=== PATIENT | female | born 1960 | race African-American/Black ===

== ENCOUNTER 2017-04-03 14:59 | Emergency (ER) | payer MEDICAID ==
[~2017-04-03] VITALS: Ht 160 cm; Wt 62.0 kg
[~2017-04-03 14:59] MED LIST: CARI350T PO; DOCU50CA11; FOLI-43 PO; GABA800T97 PO; HYDR-522 PO; HYDR200T35 PO; METH4TAB17 PO; METO10TA3 PO; P20 PO; PREN1TAB23 PO; PROT40 PO; RISP3; [UNRECOGNIZED DRUG - CODE]
[2017-04-03] MEDS ORDERED: HYDROCORTISONE SOD SUCCINATE 100 MG/2 ML VIAL IV ONE (18:00)
[2017-04-03] MEDS ORDERED: MORPHINE SULFATE 4 MG/ML CPJ (NOT FOR IM USE) IV ONE ×2 (18:00→21:00)
[2017-04-03] MEDS ORDERED: DIPHENHYDRAMINE 50MG/ML VIAL IV ONE ×2 (18:00→21:00)
[2017-04-03 18:08] LABS: BASOPHILS % 0.4 % (0.0-2.0); EOSINOPHILS % 0.1 % (0.0-5.0); HEMATOCRIT. 41.9 % (36.0-48.0); HEMOGLOBIN. 14.6 g/dL (12.0-16.0); LYMPHOCYTES % 13.6 % (20.0-50.0); MEAN CORPUSCULAR HEMOGLOBIN 31.1 pg (28.0-32.0); MEAN CORPUSCULAR VOLUME 89.1 fL (81.0-99.0); MEAN PLATELET VOLUME 7.7 fl (7.4-10.4); MONOCYTES % 8.5 % (2.0-8.0); NEUTROPHILS % 77.4 % (40.0-76.0); PLATELET 301 x1000/uL (130-400); RED BLOOD CELL COUNT 4.71 mill/uL (4.2-5.4); RED CELL DISTRIBUTION WIDTH 13.1 % (11.6-14.6)
[2017-04-03 18:11] LABS: CHLORIDE 103 mEq/L (98-107)
[2017-04-03 18:20] LABS: CARBON DIOXIDE 25 mEq/L (21-32)
[2017-04-03] MEDS ORDERED: CEFTRIAXONE 1 G PREMIX 50 ML IV ONE (21:00)
[2017-04-03 23:04] VITALS: BP 141/78
== END 2017-04-03 23:04 | disposition home or self-care (01) ==
LOC: ER 16:48
DX: K12.2 Cellulitis and abscess of mouth (principal); J45.909 Unspecified asthma, uncomplicated; M32.9 Systemic lupus erythematosus, unspecified; F12.10 Cannabis abuse, uncomplicated; Z88.5 Allergy status to narcotic agent; Z88.8 Allergy status to other drugs, medicaments and biological substances
CPT/HCPCS: 36415; 70487; 80048; 83605; 85025; 96365; 96375; 96376; 99285; J0696; J1200; J1720; J2270; Z7610

== ENCOUNTER 2017-07-16 08:52 | Inpatient (IN) | payer MEDICAID ==
[~2017-07-16] VITALS: Ht 180.3 cm; Wt 63.0 kg
[2017-07-16] VITALS: BP 122/79
[~2017-07-16 08:52] MED LIST changes: -DOCU50CA11; +DOCU50CA11 PO
[2017-07-16] MEDS ORDERED: ACETAMINOPHEN 325MG TABLET PO ONE (14:15)
[2017-07-16 14:25] LABS: CLARITY URINE CLEAR (CLEAR); COLOR URINE YELLOW (YELLOW); GLUCOSE URINE NEGATIVE (NEGATIVE); KETONES URINE NEGATIVE (NEGATIVE); LEUKOCYTE ESTERASE URINE 2+ (NEGATIVE); NITRITE URINE NEGATIVE (NEGATIVE); OCCULT BLOOD URINE TRACE (NEGATIVE); PROTEIN URINE NEGATIVE (NEGATIVE); SPECIFIC GRAVITY URINE 1.012 (1.005-1.030); UROBILINOGEN URINE 0.2 E.U./dL (0.2-1.0)
[2017-07-16] MEDS ORDERED: DIPHENHYDRAMINE 50MG/ML VIAL IV ONE (14:45)
[2017-07-16] MEDS ORDERED: MORPHINE SULFATE 2 MG/ML CPJ (NOT FOR IM USE) IV ONE (14:45)
[2017-07-16 15:02] LABS: *AMPHETAMINES SCREEN URINE NEGATIVE (NEGATIVE); *BARBITURATES SCREEN URINE NEGATIVE (NEGATIVE); *BENZODIAZEPINES SCREEN URINE NEGATIVE (NEGATIVE); *COCAINE SCREEN URINE NEGATIVE (NEGATIVE); CANNABINOID URINE SCREEN PRESUMTIVE POSITIVE (NEGATIVE); METHADONE URINE SCREEN NEGATIVE (NEGATIVE); OPIATES URINE SCREEN NEGATIVE (NEGATIVE); PHENCYCLIDINE URINE SCREEN NEGATIVE (NEGATIVE)
[2017-07-16] MEDS ORDERED: SODIUM CHLORIDE 0.9% 500 ML IV ONE (15:30)
[2017-07-16] MEDS ORDERED: MORPHINE SULFATE 4 MG/ML CPJ (NOT FOR IM USE) IV ONE (15:30)
[2017-07-16 16:08] LABS: BASOPHILS % 0.5 % (0.0-2.0); EOSINOPHILS % 0.6 % (0.0-5.0); HEMATOCRIT. 36.9 % (36.0-48.0); HEMOGLOBIN. 12.8 g/dL (12.0-16.0); LYMPHOCYTES % 17.3 % (20.0-50.0); MEAN CORPUSCULAR HEMOGLOBIN 30.1 pg (28.0-32.0); MEAN CORPUSCULAR VOLUME 87.2 fL (81.0-99.0); MEAN PLATELET VOLUME 7.8 fl (7.4-10.4); NEUTROPHILS % 78.6 % (40.0-76.0); PLATELET 317 x1000/uL (130-400); RED BLOOD CELL COUNT 4.23 mill/uL (4.2-5.4); RED CELL DISTRIBUTION WIDTH 13.6 % (11.6-14.6)
[2017-07-16 16:20] LABS: CARBON DIOXIDE 27 mEq/L (21-32); CHLORIDE 107 mEq/L (98-107)
[2017-07-16 16:22] LABS: INR 0.9; PROTHROMBIN TIME 9.5 sec (9.4-11.6)
[2017-07-16 16:26] LABS: TROPONIN I < 0.02 ng/mL (0.00-0.04)
[2017-07-16 20:00] VITALS: BP 125/80
[2017-07-16 20:54] VITALS: BP 125/80
[2017-07-16] MEDS ORDERED: HYDR-519 PO (21:26)
[2017-07-16] MEDS ORDERED: HYDR0.5S2 IJ (21:29)
[2017-07-16] MEDS ORDERED: ONDA4TAB5 PO (21:29)
[2017-07-16] MEDS ORDERED: OMEP20TA15 PO (21:31)
[2017-07-16] MEDS ORDERED: ONDANSETRON HCL 4MG/2ML VIAL IV PRN (22:15)
[2017-07-16] MEDS: HYDROMORPHONE HCL/PF 2MG/ML CPJ IV PRN (22:19)
[2017-07-16] MEDS: DIPHENHYDRAMINE 50MG/ML VIAL IV PRN (22:19)
[2017-07-17] VITALS: BP 122/79
[2017-07-17] MEDS: CARISOPRODOL 350 MG TABLET PO SCH ×4 (00:07→22:38)
[2017-07-17] MEDS: HYDROCODONE/ACETAMINOPHEN 10/325MG TABLET PO PRN ×2 (02:20→06:20)
[2017-07-17] MEDS: DIPHENHYDRAMINE 50MG/ML VIAL IV PRN ×3 (03:25→21:33)
[2017-07-17] MEDS: HYDROMORPHONE HCL/PF 2MG/ML CPJ IV PRN ×5 (03:25→21:33)
[2017-07-17 06:19] VITALS: BP 128/90
[2017-07-17 06:27] LABS: BASOPHILS % 0.4 % (0.0-2.0); EOSINOPHILS % 2.4 % (0.0-5.0); HEMOGLOBIN. 11.9 g/dL (12.0-16.0); LYMPHOCYTES % 42.8 % (20.0-50.0); MEAN CORPUSCULAR HEMOGLOBIN 29.9 pg (28.0-32.0); MEAN CORPUSCULAR VOLUME 88.3 fL (81.0-99.0); MEAN PLATELET VOLUME 8.2 fl (7.4-10.4); MONOCYTES % 8.3 % (2.0-8.0); NEUTROPHILS % 46.1 % (40.0-76.0); PLATELET 280 x1000/uL (130-400); RED BLOOD CELL COUNT 3.97 mill/uL (4.2-5.4); RED CELL DISTRIBUTION WIDTH 13.6 % (11.6-14.6)
[2017-07-17 06:59] LABS: CARBON DIOXIDE 26 mEq/L (21-32); CHLORIDE 108 mEq/L (98-107)
[2017-07-17 08:00] VITALS: BP 119/76
[2017-07-17] MEDS: DOCUSATE SODIUM 250MG CAPSULE PO SCH ×2 (08:07→16:41)
[2017-07-17] MEDS: METHYLPREDNISOLONE 4MG TABLET PO SCH (08:07)
[2017-07-17] MEDS: GABAPENTIN 400MG CAPSULE PO SCH ×3 (08:07→16:40)
[2017-07-17] MEDS: PRENATAL VIT/FE FUMARATE/FA TABLET PO SCH (08:07)
[2017-07-17] MEDS: FOLIC ACID 1MG TABLET PO SCH (08:08)
[2017-07-17] MEDS: HYDROXYCHLOROQUINE SULFATE 200MG TABLET PO SCH ×2 (08:08→16:41)
[2017-07-17] MEDS ORDERED: PRENATAL VIT PO SCH (09:00)
[2017-07-17] MEDS ORDERED: [UNRECOGNIZED DRUG - OTHER] PO SCH (09:00)
[2017-07-17] MEDS ORDERED: MEDICATION NOT ON FORMULARY EA (Gabapentin 800 MG) PO SCH (09:00)
[2017-07-17] MEDS ORDERED: DOCUSATE SODIUM PO SCH (09:00)
[2017-07-17] MEDS ORDERED: FE FUMARATE PO SCH (09:00)
[2017-07-17 12:00] VITALS: BP 107/71
[2017-07-17] MEDS: NAPROXEN 500MG TABLET PO SCH ×2 (12:12→20:54)
[2017-07-17 12:47] LABS: RHEUMATOID FACTOR SCREEN POSITIVE (NEGATIVE)
[2017-07-17] MEDS: LIDOCAINE HCL 4% CREAM 76GM TUBE TP SCH ×2 (15:14→22:38)
[2017-07-17 16:00] VITALS: BP 125/81
[2017-07-17 20:00] VITALS: BP 130/83
[2017-07-18] VITALS: BP 129/91
[2017-07-18] MEDS: HYDROMORPHONE HCL/PF 2MG/ML CPJ IV PRN ×6 (01:54→22:51)
[2017-07-18] MEDS: CARISOPRODOL 350 MG TABLET PO SCH ×3 (05:23→21:13)
[2017-07-18] MEDS: LIDOCAINE HCL 4% CREAM 76GM TUBE TP SCH ×3 (05:23→21:13)
[2017-07-18 06:07] VITALS: BP 100/61
[2017-07-18] MEDS: DIPHENHYDRAMINE 50MG/ML VIAL IV PRN ×3 (06:08→18:40)
[2017-07-18 08:34] VITALS: BP 107/54
[2017-07-18] MEDS: METHYLPREDNISOLONE 4MG TABLET PO SCH (09:06)
[2017-07-18] MEDS: GABAPENTIN 400MG CAPSULE PO SCH ×3 (09:06→18:39)
[2017-07-18] MEDS: FOLIC ACID 1MG TABLET PO SCH (09:06)
[2017-07-18] MEDS: NAPROXEN 500MG TABLET PO SCH ×2 (09:06→21:13)
[2017-07-18] MEDS: DOCUSATE SODIUM 250MG CAPSULE PO SCH ×2 (09:06→18:39)
[2017-07-18] MEDS: PRENATAL VIT/FE FUMARATE/FA TABLET PO SCH (09:06)
[2017-07-18] MEDS: HYDROXYCHLOROQUINE SULFATE 200MG TABLET PO SCH ×2 (09:06→18:39)
[2017-07-18] MEDS: HYDROCODONE/ACETAMINOPHEN 10/325MG TABLET PO PRN ×2 (09:12→21:31)
[2017-07-18 11:14] VITALS: BP 110/76
[2017-07-18 16:03] VITALS: BP 123/93
[2017-07-18 17:12] LABS: ANTI-NUCLEAR ANTIBODIES DIRECT Negative (Negative)
[2017-07-18 20:00] VITALS: BP 148/88
[2017-07-19] VITALS: BP 121/79
[2017-07-19 04:00] VITALS: BP 102/56
[2017-07-19] MEDS: HYDROMORPHONE HCL/PF 2MG/ML CPJ IV PRN ×2 (04:27→08:38)
[2017-07-19] MEDS: CARISOPRODOL 350 MG TABLET PO SCH ×3 (05:22→21:06)
[2017-07-19] MEDS: LIDOCAINE HCL 4% CREAM 76GM TUBE TP SCH ×3 (05:23→21:15)
[2017-07-19 08:00] VITALS: BP 119/78
[2017-07-19] MEDS: METHYLPREDNISOLONE SOD SUCC 40 MG/ML VIAL IV SCH ×2 (08:38→21:11)
[2017-07-19] MEDS: PRENATAL VIT/FE FUMARATE/FA TABLET PO SCH (08:38)
[2017-07-19] MEDS: GABAPENTIN 400MG CAPSULE PO SCH ×3 (08:38→18:12)
[2017-07-19] MEDS: METHYLPREDNISOLONE 4MG TABLET PO SCH (08:38)
[2017-07-19] MEDS: HYDROXYCHLOROQUINE SULFATE 200MG TABLET PO SCH ×2 (08:39→18:12)
[2017-07-19] MEDS: DOCUSATE SODIUM 250MG CAPSULE PO SCH ×2 (08:39→18:12)
[2017-07-19] MEDS: FOLIC ACID 1MG TABLET PO SCH (08:39)
[2017-07-19] MEDS: NAPROXEN 500MG TABLET PO SCH ×2 (08:39→21:06)
[2017-07-19 09:06] LABS: COMPLEMENT C3 95 mg/dL (82-167)
[2017-07-19 11:50] VITALS: BP 103/75
[2017-07-19] MEDS: DIPHENHYDRAMINE 50MG/ML VIAL IV PRN ×2 (12:14→18:15)
[2017-07-19] MEDS: HYDROMORPHONE HCL 2MG TABLET PO PRN ×3 (12:14→22:27)
[2017-07-19] MEDS: HYDROCODONE/ACETAMINOPHEN 10/325MG TABLET PO PRN (13:26)
[2017-07-19 20:00] VITALS: BP 105/85
[2017-07-20] VITALS: BP 118/72
[2017-07-20] MEDS: HYDROCODONE/ACETAMINOPHEN 10/325MG TABLET PO PRN ×2 (02:01→08:47)
[2017-07-20] MEDS: DIPHENHYDRAMINE 50MG/ML VIAL IV PRN ×2 (02:02→08:57)
[2017-07-20 04:00] VITALS: BP 102/56
[2017-07-20] MEDS: CARISOPRODOL 350 MG TABLET PO SCH ×2 (05:35→14:09)
[2017-07-20] MEDS: HYDROMORPHONE HCL 2MG TABLET PO PRN ×2 (05:36→14:10)
[2017-07-20] MEDS: LIDOCAINE HCL 4% CREAM 76GM TUBE TP SCH ×2 (05:38→14:12)
[2017-07-20 08:00] VITALS: BP 120/76
[2017-07-20] MEDS: METHYLPREDNISOLONE SOD SUCC 40 MG/ML VIAL IV SCH (08:40)
[2017-07-20] MEDS: NAPROXEN 500MG TABLET PO SCH (08:40)
[2017-07-20] MEDS: DOCUSATE SODIUM 250MG CAPSULE PO SCH (08:41)
[2017-07-20] MEDS: HYDROXYCHLOROQUINE SULFATE 200MG TABLET PO SCH (08:41)
[2017-07-20] MEDS: PRENATAL VIT/FE FUMARATE/FA TABLET PO SCH (08:41)
[2017-07-20] MEDS: FOLIC ACID 1MG TABLET PO SCH (08:41)
[2017-07-20] MEDS: GABAPENTIN 400MG CAPSULE PO SCH ×2 (08:42→14:14)
[2017-07-20] MEDS: METHYLPREDNISOLONE 4MG TABLET PO SCH (08:57)
[2017-07-20 11:42] VITALS: BP 122/68
[2017-07-20] MEDS ORDERED: CARI350T27 PO (14:17)
[2017-07-20] MEDS ORDERED: GABA-533 PO (14:17)
[2017-07-20] MEDS ORDERED: METH4TAB PO (14:17)
[2017-07-20] MEDS ORDERED: HYDR2TAB4 PO (14:17)
[2017-07-20] MEDS ORDERED: HYDR200T35 PO (14:17)
[2017-07-20 14:59] VITALS: BP 140/94
[2017-07-20 15:55] VITALS: BP 140/94
== END 2017-07-20 16:10 | disposition home or self-care (01) | DRG 346 ==
LOC: ER 09:23 → 5WST 16:03 → EDBEDREQ 16:52 → ENRESERV 16:54 → EDBEDREQ 17:09
PROVIDERS: ADMIT Internal Medicine; ATTEND Internal Medicine
DX: M32.8 Other forms of systemic lupus erythematosus (principal); K86.1 Other chronic pancreatitis; M35.00 Sjogren syndrome, unspecified; J98.11 Atelectasis; F12.90 Cannabis use, unspecified, uncomplicated; J45.909 Unspecified asthma, uncomplicated; M06.9 Rheumatoid arthritis, unspecified; M14.80 Arthropathies in other specified diseases classified elsewhere, unspecified site; S80.02XA Contusion of left knee, initial encounter; M17.12 Unilateral primary osteoarthritis, left knee; M32.19 Other organ or system involvement in systemic lupus erythematosus; W19.XXXA Unspecified fall, initial encounter; Z79.899 Other long term (current) drug therapy; Z80.6 Family history of leukemia; Z82.49 Family history of ischemic heart disease and other diseases of the circulatory system; Z82.5 Family history of asthma and other chronic lower respiratory diseases; Z91.19 Patient's noncompliance with other medical treatment and regimen; Z88.5 Allergy status to narcotic agent; Z88.6 Allergy status to analgesic agent; Z88.8 Allergy status to other drugs, medicaments and biological substances; Z79.1 Long term (current) use of non-steroidal anti-inflammatories (NSAID)
CPT/HCPCS: 36415; 71010; 73562; 80048; 80053; 80305; 81001; 83036; 83735; 83880; 84484; 85025; 85610; 85651; 86038; 86160; 86430; 93005; 96361; 96374; 96375; 97116; 97162; 99285; C1893; J1170; J1200; J2270; J2920; J7040; J7509

== ENCOUNTER 2017-10-13 11:57 | Emergency (ER) | payer MEDICAID ==
[~2017-10-13] VITALS: Ht 149.9 cm; Wt 68.0 kg
[~2017-10-13 11:57] MED LIST changes: -CARI350T PO; +CARI350T27 PO; +HYDR-519 PO; -HYDR-522 PO; -HYDR200T35 PO; +HYDR2TAB4 PO; -METH4TAB17 PO; +OMEP20TA15 PO; +ONDA4TAB5 PO
[2017-10-13] MEDS ORDERED: MORPHINE SULFATE 10 MG/ML CPJ IM ONE (12:45)
[2017-10-13 12:51] VITALS: BP 111/72
== END 2017-10-13 14:17 | disposition home or self-care (01) ==
LOC: ER 11:57
DX: M25.562 Pain in left knee (principal)
CPT/HCPCS: 73562; 96372; 99284; J2270; Z7610

== ENCOUNTER 2017-10-19 12:09 | Emergency (ER) | payer MEDICAID ==
[~2017-10-19] VITALS: Ht 152.4 cm; Wt 68.0 kg
[2017-10-19] MEDS ORDERED: TRAMADOL 50MG TABLET PO ONE (13:15)
[2017-10-19] MEDS ORDERED: LORAZEPAM 1MG TABLET PO ONE (13:15)
[2017-10-19] MEDS ORDERED: ONDANSETRON HCL 4MG/2ML VIAL IV STA ×2 (14:13→16:16)
[2017-10-19] MEDS ORDERED: MORPHINE SULFATE 4 MG/ML CPJ (NOT FOR IM USE) IV STA ×2 (14:13→16:16)
[2017-10-19 14:22] LABS: HEMATOCRIT. 34.5 % (36.0-48.0); HEMOGLOBIN. 11.9 g/dL (12.0-16.0); MEAN CORPUSCULAR HEMOGLOBIN 29.6 pg (28.0-32.0); MEAN CORPUSCULAR VOLUME 85.7 fL (81.0-99.0); MEAN PLATELET VOLUME 7.3 fl (7.4-10.4); PLATELET 332 x1000/uL (130-400); RED BLOOD CELL COUNT 4.02 mill/uL (4.2-5.4); RED CELL DISTRIBUTION WIDTH 14.2 % (11.6-14.6)
[2017-10-19 14:28] LABS: CARBON DIOXIDE 25 mEq/L (21-32); CHLORIDE 104 mEq/L (98-107)
[2017-10-19 15:10] LABS: PLATELET ESTIMATE NORMAL
[2017-10-19 16:00] LABS: CLARITY URINE CLEAR (CLEAR); COLOR URINE YELLOW (YELLOW); KETONES URINE NEGATIVE (NEGATIVE); LEUKOCYTE ESTERASE URINE NEGATIVE (NEGATIVE); NITRITE URINE NEGATIVE (NEGATIVE); OCCULT BLOOD URINE 1+ (NEGATIVE); PROTEIN URINE NEGATIVE (NEGATIVE); SPECIFIC GRAVITY URINE 1.011 (1.005-1.030); UROBILINOGEN URINE 0.2 E.U./dL (0.2-1.0)
[2017-10-19 16:12] LABS: *AMPHETAMINES SCREEN URINE NEGATIVE (NEGATIVE); *BARBITURATES SCREEN URINE NEGATIVE (NEGATIVE); *BENZODIAZEPINES SCREEN URINE NEGATIVE (NEGATIVE); *COCAINE SCREEN URINE NEGATIVE (NEGATIVE); CANNABINOID URINE SCREEN PRESUMTIVE POSITIVE (NEGATIVE); METHADONE URINE SCREEN NEGATIVE (NEGATIVE); OPIATES URINE SCREEN PRESUMTIVE POSITIVE (NEGATIVE); PHENCYCLIDINE URINE SCREEN NEGATIVE (NEGATIVE)
[2017-10-19 17:02] VITALS: BP 126/79
== END 2017-10-19 17:59 | disposition home or self-care (01) ==
LOC: ER 12:09
DX: M32.19 Other organ or system involvement in systemic lupus erythematosus (principal); M14.80 Arthropathies in other specified diseases classified elsewhere, unspecified site; F41.0 Panic disorder [episodic paroxysmal anxiety]; J45.909 Unspecified asthma, uncomplicated; M19.90 Unspecified osteoarthritis, unspecified site; F12.10 Cannabis abuse, uncomplicated; Z88.6 Allergy status to analgesic agent
CPT/HCPCS: 36415; 70450; 80053; 80305; 81001; 85025; 96374; 96375; 96376; 99285; J2270; J2405; Z7610

== ENCOUNTER 2018-02-14 07:55 | Emergency (ER) | payer MEDICAID ==
[~2018-02-14] VITALS: Ht 149.9 cm; Wt 73.0 kg
[2018-02-14] MEDS ORDERED: MORPHINE SULFATE 2 MG/ML CPJ (NOT FOR IM USE) IV ONE (08:45)
[2018-02-14] MEDS ORDERED: METHYLPREDNISOLONE SOD SUCC 125 MG/2 ML VIAL IV ONE (08:45)
[2018-02-14] MEDS ORDERED: MORPHINE SULFATE 4 MG/ML CPJ (NOT FOR IM USE) IV NR (09:30)
[2018-02-14] MEDS ORDERED: DIPHENHYDRAMINE 50MG/ML VIAL IV ONE (10:15)
[2018-02-14 11:24] VITALS: BP 125/75
== END 2018-02-14 11:38 | disposition home or self-care (01) ==
LOC: ER 08:10
DX: M32.19 Other organ or system involvement in systemic lupus erythematosus (principal); M14.80 Arthropathies in other specified diseases classified elsewhere, unspecified site; J45.909 Unspecified asthma, uncomplicated; Z88.5 Allergy status to narcotic agent
CPT/HCPCS: 96374; 96375; 99284; C1893; J1200; J2270; J2930; Z7610

== ENCOUNTER 2018-03-24 08:21 | Emergency (ER) | payer MEDICAID ==
[~2018-03-24] VITALS: Ht 149.9 cm; Wt 71.0 kg
[2018-03-24] MEDS ORDERED: ONDANSETRON HCL 4MG/2ML VIAL IV STA (08:54)
[2018-03-24] MEDS ORDERED: MORPHINE SULFATE 4 MG/ML CPJ (NOT FOR IM USE) IV STA (08:54)
[2018-03-24 09:38] LABS: BASOPHILS % 0.7 % (0.0-2.0); EOSINOPHILS % 2.8 % (0.0-5.0); HEMATOCRIT. 35.5 % (36.0-48.0); HEMOGLOBIN. 12.6 g/dL (12.0-16.0); LYMPHOCYTES % 37.2 % (20.0-50.0); MEAN CORPUSCULAR HEMOGLOBIN 31.5 pg (28.0-32.0); MEAN CORPUSCULAR VOLUME 88.8 fL (81.0-99.0); MEAN PLATELET VOLUME 8.3 fl (7.4-10.4); MONOCYTES % 9.2 % (2.0-8.0); NEUTROPHILS % 50.1 % (40.0-76.0); PLATELET 336 x1000/uL (130-400); RED BLOOD CELL COUNT 3.99 mill/uL (4.2-5.4); RED CELL DISTRIBUTION WIDTH 14.4 % (11.6-14.6)
[2018-03-24 09:44] LABS: CHLORIDE 113 mEq/L (98-107)
[2018-03-24] MEDS ORDERED: SODIUM CHLORIDE 0.9% 1,000 ML IV ONE (10:30)
[2018-03-24] MEDS ORDERED: MORPHINE SULFATE 4 MG/ML CPJ (NOT FOR IM USE) IV ONE (12:00)
[2018-03-24 12:30] VITALS: BP 130/94
== END 2018-03-24 13:25 | disposition home or self-care (01) ==
LOC: ER 10:05
DX: R10.33 Periumbilical pain (principal); M32.9 Systemic lupus erythematosus, unspecified; J45.909 Unspecified asthma, uncomplicated; M19.90 Unspecified osteoarthritis, unspecified site; Z88.5 Allergy status to narcotic agent; Z88.8 Allergy status to other drugs, medicaments and biological substances; Z98.890 Other specified postprocedural states
CPT/HCPCS: 36415; 74176; 80053; 83690; 85025; 96361; 96374; 96375; 96376; 99285; J2270; J2405; J7030; Z7610

== ENCOUNTER 2018-03-29 11:30 | Emergency (ER) | payer MEDICAID, OTHER ==
[~2018-03-29] VITALS: Ht 149.9 cm; Wt 71.0 kg
[2018-03-29] MEDS ORDERED: ACETAMINOPHEN 500MG TABLET PO ONE (12:00)
[2018-03-29] MEDS ORDERED: ONDANSETRON HCL 4MG/2ML VIAL IV STA (12:42)
[2018-03-29] MEDS ORDERED: SODIUM CHLORIDE 0.9% 1,000 ML IV ONE (12:42)
[2018-03-29] MEDS ORDERED: MORPHINE SULFATE 4 MG/ML CPJ (NOT FOR IM USE) IV STA (12:42)
[2018-03-29] MEDS ORDERED: DIPHENHYDRAMINE 50MG/ML VIAL IV ONE (12:45)
[2018-03-29] MEDS ORDERED: DEXAMETHASONE 10 MG/ML VIAL IV ONE (13:15)
[2018-03-29 13:18] LABS: CHLORIDE 109 mEq/L (98-107)
[2018-03-29 13:22] LABS: INR 0.9; PARTIAL THROMBOPLASTIN TIME 26.2 sec (23.4-31.0); PROTHROMBIN TIME 9.5 sec (9.4-11.6)
[2018-03-29 13:35] LABS: BASOPHILS % 0.5 % (0.0-2.0); EOSINOPHILS % 3.1 % (0.0-5.0); HEMATOCRIT. 35.8 % (36.0-48.0); HEMOGLOBIN. 12.5 g/dL (12.0-16.0); LYMPHOCYTES % 31.2 % (20.0-50.0); MEAN CORPUSCULAR HEMOGLOBIN 30.9 pg (28.0-32.0); MEAN CORPUSCULAR VOLUME 88.4 fL (81.0-99.0); MEAN PLATELET VOLUME 8.5 fl (7.4-10.4); NEUTROPHILS % 56.2 % (40.0-76.0); PLATELET 344 x1000/uL (130-400); RED BLOOD CELL COUNT 4.05 mill/uL (4.2-5.4); RED CELL DISTRIBUTION WIDTH 14.3 % (11.6-14.6)
[2018-03-29 15:22] VITALS: BP 118/56
[2018-03-29 15:50] LABS: CLARITY URINE CLEAR (CLEAR); COLOR URINE YELLOW (YELLOW); KETONES URINE NEGATIVE (NEGATIVE); LEUKOCYTE ESTERASE URINE TRACE (NEGATIVE); NITRITE URINE NEGATIVE (NEGATIVE); OCCULT BLOOD URINE NEGATIVE (NEGATIVE); PROTEIN URINE NEGATIVE (NEGATIVE); SPECIFIC GRAVITY URINE 1.014 (1.005-1.030); UROBILINOGEN URINE 0.2 E.U./dL (0.2-1.0)
[2018-03-29 16:23] LABS: *AMPHETAMINES SCREEN URINE NEGATIVE (NEGATIVE); *BARBITURATES SCREEN URINE NEGATIVE (NEGATIVE); *BENZODIAZEPINES SCREEN URINE NEGATIVE (NEGATIVE); *COCAINE SCREEN URINE NEGATIVE (NEGATIVE); METHADONE URINE SCREEN NEGATIVE (NEGATIVE); OPIATES URINE SCREEN PRESUMTIVE POSITIVE (NEGATIVE); PHENCYCLIDINE URINE SCREEN NEGATIVE (NEGATIVE)
[2018-03-29 16:24] LABS: CANNABINOID URINE SCREEN PRESUMTIVE POSITIVE (NEGATIVE)
== END 2018-03-29 16:46 | disposition home or self-care (01) ==
LOC: ER 11:30
DX: M54.42 Lumbago with sciatica, left side (principal); M32.9 Systemic lupus erythematosus, unspecified; I10 Essential (primary) hypertension; M19.90 Unspecified osteoarthritis, unspecified site; J45.909 Unspecified asthma, uncomplicated; R79.1 Abnormal coagulation profile; Z88.5 Allergy status to narcotic agent; Z88.6 Allergy status to analgesic agent
CPT/HCPCS: 36415; 80053; 80305; 81003; 83690; 85025; 85610; 85730; 87086; 93970; 96374; 96375; 99285; C1893; J1100; J1200; J2270; J2405; J7030; Z7610

== ENCOUNTER 2019-01-22 07:05 | Inpatient (IN) | payer MEDICAID ==
[~2019-01-22] VITALS: Ht 149.9 cm; Wt 62.6 kg
[~2019-01-22 07:05] MED LIST changes: -RISP3; +RISP3 PO; -[UNRECOGNIZED DRUG - CODE]; +[UNRECOGNIZED DRUG - CODE] PO
[2019-01-22] MEDS ORDERED: HYDROCODONE/ACETAMINOPHEN 5/325MG TABLET PO STA (07:49)
[2019-01-22 08:09] LABS: BASOPHILS % 0.9 % (0.0-2.0); EOSINOPHILS % 1.1 % (0.0-5.0); HEMATOCRIT. 37.3 % (36.0-48.0); HEMOGLOBIN. 12.9 g/dL (12.0-16.0); MEAN CORPUSCULAR HEMOGLOBIN 30.2 pg (28.0-32.0); MEAN CORPUSCULAR VOLUME 87.7 fL (81.0-99.0); MEAN PLATELET VOLUME 7.9 fl (7.4-10.4); MONOCYTES % 5.8 % (2.0-8.0); NEUTROPHILS % 58.2 % (40.0-76.0); PLATELET 360 x1000/uL (130-400); RED BLOOD CELL COUNT 4.26 mill/uL (4.2-5.4); RED CELL DISTRIBUTION WIDTH 13.5 % (11.6-14.6)
[2019-01-22 08:15] LABS: CHLORIDE 112 mEq/L (98-107)
[2019-01-22 08:16] LABS: INR 0.9; PROTHROMBIN TIME 9.1 sec (9.6-11.0)
[2019-01-22] MEDS ORDERED: HYDROMORPHONE HCL/PF 2MG/ML CPJ IV ONE ×2 (08:30→11:30)
[2019-01-22] MEDS ORDERED: ALBUTEROL (0.083%) 2.5MG/3ML NEB HHN STA (08:30)
[2019-01-22] MEDS ORDERED: SODIUM CHLORIDE 0.9% 1,000 ML IV ONE (09:00)
[2019-01-22] MEDS ORDERED: METHYLPREDNISOLONE SOD SUCC 125 MG/2 ML VIAL IV ONE (09:15)
[2019-01-22 16:00] VITALS: BP 132/83
[2019-01-22 16:30] VITALS: BP 132/83
[2019-01-22] MEDS ORDERED: HYDROMORPHONE HCL/PF 2MG/ML CPJ IV PRN (17:00)
[2019-01-22] MEDS: ONDANSETRON HCL 4MG/2ML INJ IV PRN (19:50)
[2019-01-22] MEDS: METHYLPREDNISOLONE SOD SUCC 40 MG/ML VIAL IV SCH (19:50)
[2019-01-22] MEDS: ENOXAPARIN 40MG/0.4ML SYR SUBCUT SCH (19:50)
[2019-01-22 20:39] VITALS: BP 140/87
[2019-01-22] MEDS: IPRATROPIUM/ALBUTEROL 0.5-3(2.5)MG/3ML NEB HHN SCH (21:09)
[2019-01-22] MEDS: HYDROMORPHONE HCL/PF 2MG/ML CPJ IV PRN (21:30)
[2019-01-22] MEDS: DIPHENHYDRAMINE 25MG CAPSULE PO PRN (21:31)
[2019-01-22] MEDS: SODIUM CHLORIDE 0.9% 1,000 ML IV SCH (21:31)
[2019-01-22] MEDS: GABAPENTIN 300MG CAPSULE PO SCH (22:09)
[2019-01-22] MEDS: CARISOPRODOL 350 MG TABLET PO PRN (23:30)
[2019-01-23 00:05] VITALS: BP 119/71
[2019-01-23] MEDS: IPRATROPIUM/ALBUTEROL 0.5-3(2.5)MG/3ML NEB HHN SCH ×6 (00:42→20:19)
[2019-01-23] MEDS: METHYLPREDNISOLONE SOD SUCC 40 MG/ML VIAL IV SCH ×3 (01:48→17:13)
[2019-01-23] MEDS: HYDROMORPHONE HCL/PF 2MG/ML CPJ IV PRN ×6 (01:55→23:00)
[2019-01-23] MEDS: ONDANSETRON HCL 4MG/2ML INJ IV PRN ×2 (01:55→08:06)
[2019-01-23 04:00] VITALS: BP 129/75
[2019-01-23] MEDS: GABAPENTIN 300MG CAPSULE PO SCH ×3 (05:29→21:33)
[2019-01-23 06:44] LABS: BASOPHILS % 0.8 % (0.0-2.0); HEMATOCRIT. 36.6 % (36.0-48.0); HEMOGLOBIN. 12.3 g/dL (12.0-16.0); LYMPHOCYTES % 18.1 % (20.0-50.0); MEAN CORPUSCULAR VOLUME 89.4 fL (81.0-99.0); MEAN PLATELET VOLUME 8.2 fl (7.4-10.4); MONOCYTES % 2.3 % (2.0-8.0); NEUTROPHILS % 78.8 % (40.0-76.0); PLATELET 334 x1000/uL (130-400); RED CELL DISTRIBUTION WIDTH 13.6 % (11.6-14.6)
[2019-01-23 07:05] LABS: CHLORIDE 110 mEq/L (98-107)
[2019-01-23 08:00] VITALS: BP 118/73
[2019-01-23] MEDS: CARISOPRODOL 350 MG TABLET PO PRN ×2 (08:06→19:53)
[2019-01-23] MEDS ORDERED: POTASSIUM CHLORIDE 20MEQ TABLET SR PO SCH (10:00)
[2019-01-23] MEDS: SODIUM CHLORIDE 0.9% 1,000 ML IV SCH ×2 (11:02→19:57)
[2019-01-23 12:00] VITALS: BP 118/78
[2019-01-23] MEDS: DIPHENHYDRAMINE 25MG CAPSULE PO PRN (13:12)
[2019-01-23 16:00] VITALS: BP 120/64
[2019-01-23] MEDS: ENOXAPARIN 40MG/0.4ML SYR SUBCUT SCH (17:13)
[2019-01-23] MEDS ORDERED: MORPHINE SULFATE 4 MG/ML CPJ (NOT FOR IM USE) IV PRN (19:30)
[2019-01-23 20:03] VITALS: BP 133/88
[2019-01-24 00:05] VITALS: BP 120/75
[2019-01-24] MEDS: IPRATROPIUM/ALBUTEROL 0.5-3(2.5)MG/3ML NEB HHN SCH ×6 (00:22→21:13)
[2019-01-24] MEDS: HYDROMORPHONE HCL/PF 2MG/ML CPJ IV PRN ×7 (01:59→21:36)
[2019-01-24] MEDS: METHYLPREDNISOLONE SOD SUCC 40 MG/ML VIAL IV SCH ×3 (02:00→16:46)
[2019-01-24] MEDS: DIPHENHYDRAMINE 25MG CAPSULE PO PRN ×3 (02:05→20:20)
[2019-01-24 04:00] VITALS: BP 120/77
[2019-01-24] MEDS: GABAPENTIN 300MG CAPSULE PO SCH ×3 (05:05→21:36)
[2019-01-24] MEDS: CARISOPRODOL 350 MG TABLET PO PRN ×2 (06:29→20:20)
[2019-01-24 08:00] VITALS: BP 133/85
[2019-01-24 08:45] LABS: BASOPHILS % 0.1 % (0.0-2.0); EOSINOPHILS % 0.2 % (0.0-5.0); HEMATOCRIT. 41.2 % (36.0-48.0); HEMOGLOBIN. 13.8 g/dL (12.0-16.0); MEAN CORPUSCULAR HEMOGLOBIN 30.6 pg (28.0-32.0); MEAN CORPUSCULAR VOLUME 91.2 fL (81.0-99.0); MEAN PLATELET VOLUME 8.7 fl (7.4-10.4); MONOCYTES % 4.3 % (2.0-8.0); NEUTROPHILS % 77.4 % (40.0-76.0); PLATELET 234 x1000/uL (130-400); RED BLOOD CELL COUNT 4.51 mill/uL (4.2-5.4)
[2019-01-24 09:00] LABS: CHLORIDE 110 mEq/L (98-107)
[2019-01-24] MEDS: ONDANSETRON HCL 4MG/2ML INJ IV PRN ×2 (09:05→18:29)
[2019-01-24] MEDS: SODIUM CHLORIDE 0.9% 1,000 ML IV SCH ×3 (10:08→23:47)
[2019-01-24 12:00] VITALS: BP 112/75
[2019-01-24] MEDS ORDERED: LIDOCAINE HCL 1% 20ML VIAL (Pyxis) INJ ONE (13:57)
[2019-01-24] MEDS ORDERED: SODIUM BICARBONATE 4% (2.4MEQ) 5ML VIAL IV ONE (13:57)
[2019-01-24 16:00] VITALS: BP 146/65
[2019-01-24] MEDS ORDERED: IOHEXOL-350 100 ML BOTTLE ONE (16:25)
[2019-01-24] MEDS: ENOXAPARIN 40MG/0.4ML SYR SUBCUT SCH (16:47)
[2019-01-24 17:35] LABS: ETHANOL BLOOD < 10 mg/dL
[2019-01-24 17:39] LABS: CREATINE KINASE 71 IU/L (26-192)
[2019-01-24 17:40] LABS: T4 FREE 0.83 ng/dL (0.76-1.46)
[2019-01-24 17:49] LABS: FOLIC ACID (FOLATE) SERUM 18.7 ng/mL (>5.38)
[2019-01-24 20:00] VITALS: BP 128/78
[2019-01-25] VITALS: BP 126/74
[2019-01-25] MEDS: HYDROMORPHONE HCL/PF 2MG/ML CPJ IV PRN ×8 (00:41→21:53)
[2019-01-25] MEDS: ONDANSETRON HCL 4MG/2ML INJ IV PRN ×2 (00:44→06:52)
[2019-01-25] MEDS: IPRATROPIUM/ALBUTEROL 0.5-3(2.5)MG/3ML NEB HHN SCH ×6 (00:55→21:07)
[2019-01-25 04:00] VITALS: BP 129/81
[2019-01-25] MEDS: IBUPROFEN 600MG TABLET PO SCH ×3 (06:41→21:16)
[2019-01-25] MEDS: GABAPENTIN 300MG CAPSULE PO SCH ×3 (06:41→21:16)
[2019-01-25] MEDS: CARISOPRODOL 350 MG TABLET PO PRN ×2 (06:52→20:02)
[2019-01-25] MEDS: DIPHENHYDRAMINE 25MG CAPSULE PO PRN ×2 (06:52→20:02)
[2019-01-25 07:55] LABS: CREATINE KINASE 77 IU/L (26-192)
[2019-01-25 08:00] VITALS: BP 116/79
[2019-01-25] MEDS: PREDNISONE 10MG TABLET PO SCH (08:41)
[2019-01-25] MEDS: SODIUM CHLORIDE 0.9% 1,000 ML IV SCH ×2 (08:42→18:59)
[2019-01-25] MEDS ORDERED: NA PHOS,M-B/NA PHOS,DI-BA ENEMA 118ML PR NR (11:30)
[2019-01-25 12:00] VITALS: BP 112/62
[2019-01-25] MEDS: LACTULOSE 20G/30ML UDC PO SCH ×3 (12:59→21:23)
[2019-01-25 16:00] VITALS: BP 109/79
[2019-01-25] MEDS: DOCUSATE SODIUM 100MG CAPSULE PO SCH (16:43)
[2019-01-25] MEDS: ENOXAPARIN 40MG/0.4ML SYR SUBCUT SCH (16:44)
[2019-01-25 20:00] VITALS: BP 132/91
[2019-01-25] MEDS: POLYETHYLENE GLYCOL 3350 (17GM) 1 DOSE PACK PO SCH (21:16)
[2019-01-26] VITALS (7 sets, daily range): BP systolic 97–138; BP diastolic 62–88
[2019-01-26 00:45] LABS: *AMPHETAMINES SCREEN URINE NEGATIVE (NEGATIVE); *BARBITURATES SCREEN URINE NEGATIVE (NEGATIVE); *BENZODIAZEPINES SCREEN URINE NEGATIVE (NEGATIVE); *COCAINE SCREEN URINE NEGATIVE (NEGATIVE); CANNABINOID URINE SCREEN PRESUMTIVE POSITIVE (NEGATIVE); METHADONE URINE SCREEN NEGATIVE (NEGATIVE); OPIATES URINE SCREEN PRESUMTIVE POSITIVE (NEGATIVE); PHENCYCLIDINE URINE SCREEN NEGATIVE (NEGATIVE)
[2019-01-26] MEDS: HYDROMORPHONE HCL/PF 2MG/ML CPJ IV PRN ×7 (00:54→22:07)
[2019-01-26] MEDS: IPRATROPIUM/ALBUTEROL 0.5-3(2.5)MG/3ML NEB HHN SCH ×6 (01:45→23:57)
[2019-01-26] MEDS: CARISOPRODOL 350 MG TABLET PO PRN (06:10)
[2019-01-26] MEDS: SODIUM CHLORIDE 0.9% 1,000 ML IV SCH ×2 (06:10→15:02)
[2019-01-26] MEDS: IBUPROFEN 600MG TABLET PO SCH ×3 (06:11→20:48)
[2019-01-26] MEDS: GABAPENTIN 300MG CAPSULE PO SCH ×3 (06:11→20:48)
[2019-01-26] MEDS: NA PHOS,M-B/NA PHOS,DI-BA ENEMA 118ML PR PRN (06:31)
[2019-01-26] MEDS: PREDNISONE 10MG TABLET PO SCH (08:17)
[2019-01-26] MEDS: DOCUSATE SODIUM 100MG CAPSULE PO SCH ×2 (08:17→16:40)
[2019-01-26] MEDS: PANTOPRAZOLE 40MG DR TABLET PO SCH (08:17)
[2019-01-26] MEDS: CYANOCOBALAMIN 1000MCG/ML VIAL IM SCH (13:19)
[2019-01-26] MEDS: BISACODYL 10MG SUPP PR PRN (16:40)
[2019-01-26] MEDS: ENOXAPARIN 40MG/0.4ML SYR SUBCUT SCH (16:40)
[2019-01-26] MEDS: POLYETHYLENE GLYCOL 3350 (17GM) 1 DOSE PACK PO SCH (20:46)
[2019-01-27] VITALS: BP 140/85
[2019-01-27] MEDS: SODIUM CHLORIDE 0.9% 1,000 ML IV SCH ×2 (01:03→13:50)
[2019-01-27] MEDS: HYDROMORPHONE HCL/PF 2MG/ML CPJ IV PRN ×6 (01:04→16:45)
[2019-01-27 04:00] VITALS: BP 133/80
[2019-01-27] MEDS: IPRATROPIUM/ALBUTEROL 0.5-3(2.5)MG/3ML NEB HHN SCH ×4 (04:13→14:41)
[2019-01-27] MEDS: GABAPENTIN 300MG CAPSULE PO SCH ×2 (06:12→14:27)
[2019-01-27] MEDS: IBUPROFEN 600MG TABLET PO SCH ×2 (06:12→14:28)
[2019-01-27 08:00] VITALS: BP 131/87
[2019-01-27] MEDS: PANTOPRAZOLE 40MG DR TABLET PO SCH (09:42)
[2019-01-27] MEDS: CYANOCOBALAMIN 1000MCG/ML VIAL IM SCH (09:42)
[2019-01-27] MEDS: DOCUSATE SODIUM 100MG CAPSULE PO SCH ×2 (09:42→17:45)
[2019-01-27] MEDS: PREDNISONE 10MG TABLET PO SCH (09:43)
[2019-01-27] MEDS: CARISOPRODOL 350 MG TABLET PO PRN ×2 (09:43→18:37)
[2019-01-27] MEDS: BISACODYL 10MG SUPP PR PRN (09:44)
[2019-01-27 12:00] VITALS: BP 105/65
[2019-01-27] MEDS: NA PHOS,M-B/NA PHOS,DI-BA ENEMA 118ML PR PRN (14:29)
[2019-01-27] MEDS: ENOXAPARIN 40MG/0.4ML SYR SUBCUT SCH (17:46)
[2019-01-27 18:06] VITALS: BP 127/90
[2019-02-08] MEDS ORDERED: CYANOCOBALAMIN 1000MCG/ML VIAL INJ SCH (09:00)
== END 2019-01-27 19:08 | disposition home or self-care (01) | DRG 40 ==
LOC: ER 07:05 → 7WST 09:39 → EDBEDREQ 09:43 → ENRESERV 14:03
PROVIDERS: ADMIT Internal Medicine; ATTEND Internal Medicine
PROC: 02HV33Z Insertion of Infusion Device into Superior Vena Cava, Percutaneous Approach (ICD-10-PCS; principal; 2019-01-24)
PROC: B5181ZA Fluoroscopy of Superior Vena Cava using Low Osmolar Contrast, Guidance (ICD-10-PCS; 2019-01-24)
PROC: B548ZZA Ultrasonography of Superior Vena Cava, Guidance (ICD-10-PCS; 2019-01-24)
DX: G95.29 Other cord compression (principal); K85.90 Acute pancreatitis without necrosis or infection, unspecified; M32.9 Systemic lupus erythematosus, unspecified; M48.02 Spinal stenosis, cervical region; J45.901 Unspecified asthma with (acute) exacerbation; M35.00 Sjogren syndrome, unspecified; K76.0 Fatty (change of) liver, not elsewhere classified; M06.9 Rheumatoid arthritis, unspecified; E87.6 Hypokalemia; I10 Essential (primary) hypertension; K59.00 Constipation, unspecified; J44.9 Chronic obstructive pulmonary disease, unspecified; M19.012 Primary osteoarthritis, left shoulder; F12.90 Cannabis use, unspecified, uncomplicated; M19.011 Primary osteoarthritis, right shoulder; G81.94 Hemiplegia, unspecified affecting left nondominant side; M47.892 Other spondylosis, cervical region; Z80.6 Family history of leukemia; Z82.49 Family history of ischemic heart disease and other diseases of the circulatory system; Z82.5 Family history of asthma and other chronic lower respiratory diseases; Z83.2 Family history of diseases of the blood and blood-forming organs and certain disorders involving the immune mechanism; Z91.14 Patient's other noncompliance with medication regimen; Z91.19 Patient's noncompliance with other medical treatment and regimen
CPT/HCPCS: 36415; 36569; 36573; 70551; 71045; 71275; 72141; 72146; 72148; 80048; 80305; 80320; 82085; 82550; 82607; 82746; 83036; 83605; 83880; 84439; 84443; 84481; 84484; 86160; 86200; 86235; 86256; 86431; 93005; 94640; 96374; 96375; 97116; 97162; 97166; 99285; C1725; J1170; J1650; J2405; J2920; J2930; J3420; J3490; J7030; J7042; J7050; J7512; J7611; J7620; Q0163; Q9967; G0480

== ENCOUNTER 2020-02-15 00:32 | Emergency (ER) | payer MEDICAID, OTHER ==
[~2020-02-15] VITALS: Ht 149.9 cm; Wt 63.0 kg
[~2020-02-15 00:32] MED LIST changes: +BACL20TA PO; +GABA-533 MT; -GABA800T97 PO; -PROT40 PO; -RISP3 PO; -[UNRECOGNIZED DRUG - CODE] PO
[2020-02-15 01:26] LABS: BASOPHILS % 1.1 % (0.0-2.0); HEMATOCRIT. 37.6 % (36.0-48.0); HEMOGLOBIN. 13.4 g/dL (12.0-16.0); LYMPHOCYTES % 34.2 % (20.0-50.0); MEAN CORPUSCULAR HEMOGLOBIN 33.1 pg (28.0-32.0); MEAN CORPUSCULAR VOLUME 92.7 fL (81.0-99.0); MEAN PLATELET VOLUME 8.2 fl (7.4-10.4); MONOCYTES % 7.4 % (2.0-8.0); NEUTROPHILS % 56.3 % (40.0-76.0); PLATELET 512 x1000/uL (130-400); RED BLOOD CELL COUNT 4.05 mill/uL (4.2-5.4); RED CELL DISTRIBUTION WIDTH 15.2 % (11.6-14.6)
[2020-02-15 01:31] LABS: CHLORIDE 109 mEq/L (98-107)
[2020-02-15 01:34] LABS: INR 0.8; PROTHROMBIN TIME 9.1 sec (9.6-11.0)
[2020-02-15 01:36] LABS: ETHANOL BLOOD < 10 mg/dL
[2020-02-15 01:38] LABS: LDL CHOLESTEROL 35 mg/dL (5-100)
[2020-02-15] MEDS ORDERED: FENTANYL CITRATE/PF 50MCG/ML 2ML VIAL IV ONE (02:30)
[2020-02-15] MEDS ORDERED: KETOROLAC 30MG/ML VIAL IV ONE (02:30)
[2020-02-15] MEDS ORDERED: HYDROCODONE/ACETAMINOPHEN 5/325MG TABLET PO ONE (02:30)
[2020-02-15] MEDS: METHOCARBAMOL 750MG TABLET PO SCH ×2 (02:36→02:51)
[2020-02-15] MEDS ORDERED: IOHEXOL-350 100 ML BOTTLE ONE (03:58)
[2020-02-15] MEDS ORDERED: ONDANSETRON HCL 4MG/2ML INJ IV PRN (09:30)
[2020-02-15] MEDS ORDERED: CLONIDINE 0.1MG TABLET PO PRN (09:30)
[2020-02-15] MEDS ORDERED: IPRATROPIUM/ALBUTEROL 0.5-3(2.5)MG/3ML NEB HHN PRN (09:30)
[2020-02-15] MEDS ORDERED: LORAZEPAM 0.5MG TABLET PO PRN (09:30)
[2020-02-15] MEDS ORDERED: DOCUSATE SODIUM 100MG CAPSULE PO PRN (09:30)
[2020-02-15] MEDS: HYDROCODONE/ACETAMINOPHEN 5/325MG TABLET PO PRN ×2 (10:47→16:15)
[2020-02-15] MEDS: ACETAMINOPHEN 325MG TABLET PO PRN ×2 (10:51→16:15)
[2020-02-15 15:09] LABS: CLARITY URINE CLEAR (CLEAR); COLOR URINE YELLOW (YELLOW); KETONES URINE NEGATIVE (NEGATIVE); LEUKOCYTE ESTERASE URINE NEGATIVE (NEGATIVE); NITRITE URINE NEGATIVE (NEGATIVE); OCCULT BLOOD URINE NEGATIVE (NEGATIVE); PH URINE 6.5 (4.5-8.0); PROTEIN URINE NEGATIVE (NEGATIVE); UROBILINOGEN URINE 0.2 E.U./dL (0.2-1.0)
[2020-02-15 15:30] LABS: *AMPHETAMINES SCREEN URINE NEGATIVE (NEGATIVE); *BARBITURATES SCREEN URINE NEGATIVE (NEGATIVE); *BENZODIAZEPINES SCREEN URINE NEGATIVE (NEGATIVE); *COCAINE SCREEN URINE NEGATIVE (NEGATIVE)
[2020-02-15 15:31] LABS: CANNABINOID URINE SCREEN PRESUMTIVE POSITIVE (NEGATIVE); METHADONE URINE SCREEN NEGATIVE (NEGATIVE); OPIATES URINE SCREEN PRESUMTIVE POSITIVE (NEGATIVE); PHENCYCLIDINE URINE SCREEN NEGATIVE (NEGATIVE)
[2020-02-15] MEDS ORDERED: BACLOFEN 20MG TABLET PO PRN (16:15)
[2020-02-15] MEDS ORDERED: GABAPENTIN 300MG CAPSULE PO NR (16:30)
[2020-02-15] MEDS ORDERED: FOLIC ACID 1MG TABLET PO NR (16:30)
[2020-02-15 18:25] VITALS: BP 122/73
[2020-02-16] MEDS ORDERED: FOLIC ACID 1MG TABLET PO SCH (09:00)
[2020-02-16] MEDS ORDERED: GABAPENTIN 400MG CAPSULE PO SCH (09:00)
== END 2020-02-15 18:35 | disposition left against medical advice (07) ==
LOC: ER 00:32 → EDBEDREQ 07:00 → EDBEDREQSVC 07:00 → EDBEDREQTM 07:00 → ER 18:35 → CANBEDREQ 19:43
DX: R06.02 Shortness of breath (principal); F12.10 Cannabis abuse, uncomplicated; J45.909 Unspecified asthma, uncomplicated; Z86.73 Personal history of transient ischemic attack (TIA), and cerebral infarction without residual deficits; Z98.890 Other specified postprocedural states; Z79.899 Other long term (current) drug therapy; Z88.4 Allergy status to anesthetic agent; Z88.6 Allergy status to analgesic agent
CPT/HCPCS: 36415; 70450; 70496; 71045; 80053; 80305; 80320; 81003; 82962; 83721; 84132; 84484; 85025; 85610; 93005; 96374; 96375; 99285; J1885; J3010; Q9967; G0480

== ENCOUNTER 2020-05-27 10:58 | Inpatient (IN) | payer MEDICAID, OTHER ==
[~2020-05-27] VITALS: Ht 149.9 cm; Wt 99.3 kg
[2020-05-27] MEDS ORDERED: SODIUM CHLORIDE 0.9% 1,000 ML IV ONE (11:32)
[2020-05-27] MEDS ORDERED: ONDANSETRON HCL 4MG/2ML INJ IV STA (11:32)
[2020-05-27] MEDS ORDERED: MORPHINE SULFATE 4 MG/ML CPJ (NOT FOR IM USE) IV STA (11:32)
[2020-05-27 11:55] LABS: BASOPHILS % 1.9 % (0.0-2.0); EOSINOPHILS % 1.1 % (0.0-5.0); HEMATOCRIT. 38.2 % (36.0-48.0); HEMOGLOBIN. 13.2 g/dL (12.0-16.0); LYMPHOCYTES % 32.8 % (20.0-50.0); MEAN CORPUSCULAR HEMOGLOBIN 34.3 pg (28.0-32.0); MEAN CORPUSCULAR VOLUME 98.8 fL (81.0-99.0); MEAN PLATELET VOLUME 8.3 fl (7.4-10.4); MONOCYTES % 12.2 % (2.0-8.0); PLATELET 283 x1000/uL (130-400); RED BLOOD CELL COUNT 3.86 mill/uL (4.2-5.4); RED CELL DISTRIBUTION WIDTH 15.5 % (11.6-14.6)
[2020-05-27 11:59] LABS: CHLORIDE 107 mEq/L (98-107)
[2020-05-27 12:03] LABS: ETHANOL BLOOD < 10 mg/dL
[2020-05-27] MEDS ORDERED: FENTANYL CITRATE/PF 50MCG/ML 2ML VIAL IV ONE ×2 (13:00→16:00)
[2020-05-27 13:04] LABS: INR 0.9; PROTHROMBIN TIME 9.5 sec (9.6-11.0)
[2020-05-27] MEDS ORDERED: IOHEXOL-300 100 ML BOTTLE ONE (15:08)
[2020-05-27 15:56] LABS: CLARITY URINE CLOUDY (CLEAR); COLOR URINE YELLOW (YELLOW); KETONES URINE TRACE (NEGATIVE); LEUKOCYTE ESTERASE URINE NEGATIVE (NEGATIVE); NITRITE URINE NEGATIVE (NEGATIVE); OCCULT BLOOD URINE NEGATIVE (NEGATIVE); PROTEIN URINE NEGATIVE (NEGATIVE); SPECIFIC GRAVITY URINE 1.027 (1.005-1.030); UROBILINOGEN URINE 0.2 E.U./dL (0.2-1.0)
[2020-05-27 16:23] LABS: *AMPHETAMINES SCREEN URINE NEGATIVE (NEGATIVE); *BARBITURATES SCREEN URINE NEGATIVE (NEGATIVE)
[2020-05-27 16:25] LABS: *BENZODIAZEPINES SCREEN URINE NEGATIVE (NEGATIVE); *COCAINE SCREEN URINE NEGATIVE (NEGATIVE); CANNABINOID URINE SCREEN PRESUMTIVE POSITIVE (NEGATIVE); METHADONE URINE SCREEN NEGATIVE (NEGATIVE); OPIATES URINE SCREEN PRESUMTIVE POSITIVE (NEGATIVE); PHENCYCLIDINE URINE SCREEN NEGATIVE (NEGATIVE)
[2020-05-27 18:00] VITALS: BP 124/87
[2020-05-27 18:10] VITALS: BP 124/87
[2020-05-27 20:17] VITALS: BP 127/86
[2020-05-27] MEDS ORDERED: HYDROMORPHONE HCL/PF 2MG/ML CPJ IV PRN (20:45)
[2020-05-27] MEDS ORDERED: DICL75TA5 PO (20:48)
[2020-05-27] MEDS ORDERED: HYDR200T35 PO (20:48)
[2020-05-27] MEDS ORDERED: DULO60CA64 PO (20:51)
[2020-05-27] MEDS ORDERED: METH2.5T PO (20:51)
[2020-05-27] MEDS ORDERED: CALC1TAB99 PO (20:51)
[2020-05-27] MEDS ORDERED: CLONIDINE 0.1MG TABLET PO PRN (22:00)
[2020-05-27] MEDS ORDERED: ACETAMINOPHEN 325MG TABLET PO PRN (22:00)
[2020-05-27] MEDS: DICLOFENAC SODIUM 75MG DR (EC) TABLET PO SCH (22:29)
[2020-05-27] MEDS: FOLIC ACID 1MG TABLET PO SCH (22:29)
[2020-05-27] MEDS: DULOXETINE HCL 60MG DR CAPSULE PO SCH (22:29)
[2020-05-27] MEDS: BACLOFEN 10MG TABLET PO SCH (22:30)
[2020-05-27] MEDS: HYDROXYCHLOROQUINE SULFATE 200MG TABLET PO SCH (22:33)
[2020-05-28] VITALS: BP 113/78
[2020-05-28] MEDS: HYDROMORPHONE HCL/PF 2MG/ML CPJ IV PRN ×6 (00:59→23:01)
[2020-05-28] MEDS: ONDANSETRON HCL 4MG/2ML INJ IV PRN ×3 (01:16→14:42)
[2020-05-28 01:36] LABS: CREATINE KINASE 77 IU/L (26-192); CREATINE KINASE MB FRACTION < 1.0 ng/mL (0.5-3.6)
[2020-05-28 04:00] VITALS: BP 111/78
[2020-05-28] MEDS: BACLOFEN 10MG TABLET PO SCH ×4 (05:08→22:00)
[2020-05-28 07:10] LABS: EOSINOPHILS % 0.5 % (0.0-5.0); HEMATOCRIT. 35.7 % (36.0-48.0); HEMOGLOBIN. 12.4 g/dL (12.0-16.0); MEAN CORPUSCULAR HEMOGLOBIN 34.2 pg (28.0-32.0); MEAN CORPUSCULAR VOLUME 98.5 fL (81.0-99.0); MEAN PLATELET VOLUME 8.6 fl (7.4-10.4); MONOCYTES % 10.1 % (2.0-8.0); NEUTROPHILS % 66.4 % (40.0-76.0); PLATELET 266 x1000/uL (130-400); RED BLOOD CELL COUNT 3.62 mill/uL (4.2-5.4); RED CELL DISTRIBUTION WIDTH 15.6 % (11.6-14.6)
[2020-05-28 07:50] LABS: CHLORIDE 109 mEq/L (98-107)
[2020-05-28 08:00] VITALS: BP 109/75
[2020-05-28 08:07] LABS: CREATINE KINASE 62 IU/L (26-192)
[2020-05-28 08:08] LABS: CREATINE KINASE MB FRACTION 1.1 ng/mL (0.5-3.6)
[2020-05-28] MEDS: DICLOFENAC SODIUM 75MG DR (EC) TABLET PO SCH (09:39)
[2020-05-28] MEDS: HYDROXYCHLOROQUINE SULFATE 200MG TABLET PO SCH (09:39)
[2020-05-28] MEDS: DULOXETINE HCL 60MG DR CAPSULE PO SCH (09:39)
[2020-05-28] MEDS: FOLIC ACID 1MG TABLET PO SCH (09:40)
[2020-05-28] MEDS: METHOTREXATE SODIUM 2 . 5MG TABLET PO SCH (09:40)
[2020-05-28] MEDS: GABAPENTIN 400MG CAPSULE PO SCH ×3 (09:40→17:56)
[2020-05-28] MEDS: ENOXAPARIN 40MG/0.4ML SYR SUBCUT SCH (09:40)
[2020-05-28] MEDS: PREDNISONE 20MG TABLET PO SCH (10:44)
[2020-05-28] MEDS: DIPHENHYDRAMINE 25MG CAPSULE PO PRN (11:47)
[2020-05-28 12:00] VITALS: BP 123/84
[2020-05-28] MEDS: LACTULOSE 20G/30ML UDC PO SCH ×3 (13:40→23:00)
[2020-05-28 16:00] VITALS: BP 117/76
[2020-05-28 20:00] VITALS: BP 122/86
[2020-05-29] VITALS: BP 113/81
[2020-05-29] MEDS: DIPHENHYDRAMINE 25MG CAPSULE PO PRN ×2 (00:26→07:55)
[2020-05-29 05:37] VITALS: BP 115/80
[2020-05-29] MEDS: BACLOFEN 10MG TABLET PO SCH ×3 (06:00→22:00)
[2020-05-29] MEDS: HYDROMORPHONE HCL/PF 2MG/ML CPJ IV PRN ×4 (06:46→20:07)
[2020-05-29] MEDS: DICLOFENAC SODIUM 75MG DR (EC) TABLET PO SCH (07:56)
[2020-05-29] MEDS: PREDNISONE 20MG TABLET PO SCH (07:56)
[2020-05-29] MEDS: HYDROXYCHLOROQUINE SULFATE 200MG TABLET PO SCH (07:56)
[2020-05-29] MEDS: FOLIC ACID 1MG TABLET PO SCH (07:56)
[2020-05-29] MEDS: DULOXETINE HCL 60MG DR CAPSULE PO SCH (07:56)
[2020-05-29] MEDS: GABAPENTIN 400MG CAPSULE PO SCH ×3 (07:57→18:01)
[2020-05-29] MEDS: ENOXAPARIN 40MG/0.4ML SYR SUBCUT SCH (07:57)
[2020-05-29] MEDS: METHOTREXATE SODIUM 2 . 5MG TABLET PO SCH (07:59)
[2020-05-29 08:06] VITALS: BP 114/63
[2020-05-29 12:14] VITALS: BP 119/84
[2020-05-29] MEDS: LIDOCAINE 5% PATCH TOP SCH (13:31)
[2020-05-29 16:04] VITALS: BP 119/77
[2020-05-29 20:25] VITALS: BP 108/68
[2020-05-29] MEDS: CARISOPRODOL 350 MG TABLET PO PRN (21:51)
[2020-05-29] MEDS: LACTULOSE 20G/30ML UDC PO PRN (22:08)
[2020-05-30] VITALS (7 sets, daily range): BP systolic 98–130; BP diastolic 72–95
[2020-05-30] MEDS: HYDROMORPHONE HCL/PF 2MG/ML CPJ IV PRN ×5 (02:25→20:17)
[2020-05-30] MEDS: CARISOPRODOL 350 MG TABLET PO PRN ×2 (04:14→22:54)
[2020-05-30] MEDS: BACLOFEN 10MG TABLET PO SCH ×3 (06:00→22:00)
[2020-05-30] MEDS: LACTULOSE 20G/30ML UDC PO PRN ×2 (08:44→22:57)
[2020-05-30] MEDS: HYDROXYCHLOROQUINE SULFATE 200MG TABLET PO SCH (08:46)
[2020-05-30] MEDS: FOLIC ACID 1MG TABLET PO SCH (08:47)
[2020-05-30] MEDS: METHOTREXATE SODIUM 2 . 5MG TABLET PO SCH (08:47)
[2020-05-30] MEDS: GABAPENTIN 400MG CAPSULE PO SCH ×3 (08:47→17:27)
[2020-05-30] MEDS: DULOXETINE HCL 60MG DR CAPSULE PO SCH (08:47)
[2020-05-30] MEDS: PREDNISONE 20MG TABLET PO SCH (08:47)
[2020-05-30] MEDS: DICLOFENAC SODIUM 75MG DR (EC) TABLET PO SCH (08:47)
[2020-05-30] MEDS: ENOXAPARIN 40MG/0.4ML SYR SUBCUT SCH (08:49)
[2020-05-30] MEDS: LIDOCAINE 5% PATCH TOP SCH (13:27)
[2020-05-30] MEDS: ONDANSETRON HCL 4MG/2ML INJ IV PRN (14:06)
[2020-05-31] VITALS (8 sets, daily range): BP systolic 97–138; BP diastolic 63–101
[2020-05-31] MEDS: HYDROMORPHONE HCL/PF 2MG/ML CPJ IV PRN ×6 (00:17→23:46)
[2020-05-31] MEDS: BACLOFEN 10MG TABLET PO SCH ×3 (06:00→22:00)
[2020-05-31] MEDS: PREDNISONE 20MG TABLET PO SCH (09:12)
[2020-05-31] MEDS: DICLOFENAC SODIUM 75MG DR (EC) TABLET PO SCH (09:12)
[2020-05-31] MEDS: DULOXETINE HCL 60MG DR CAPSULE PO SCH (09:12)
[2020-05-31] MEDS: HYDROXYCHLOROQUINE SULFATE 200MG TABLET PO SCH (09:12)
[2020-05-31] MEDS: FOLIC ACID 1MG TABLET PO SCH (09:12)
[2020-05-31] MEDS: GABAPENTIN 400MG CAPSULE PO SCH ×3 (09:12→17:56)
[2020-05-31] MEDS: ENOXAPARIN 40MG/0.4ML SYR SUBCUT SCH (09:13)
[2020-05-31] MEDS: METHOTREXATE SODIUM 2 . 5MG TABLET PO SCH (09:15)
[2020-05-31] MEDS: LIDOCAINE 5% PATCH TOP SCH (09:15)
[2020-05-31] MEDS: LACTULOSE 20G/30ML UDC PO PRN (12:40)
[2020-05-31] MEDS: CARISOPRODOL 350 MG TABLET PO PRN ×2 (12:40→21:21)
[2020-05-31] MEDS ORDERED: NA PHOS,M-B/NA PHOS,DI-BA ENEMA 118ML PR SCH (13:00)
[2020-06-01 00:34] VITALS: BP 115/87
[2020-06-01 04:00] VITALS: BP 108/77
[2020-06-01] MEDS: HYDROMORPHONE HCL/PF 2MG/ML CPJ IV PRN ×3 (04:11→13:27)
[2020-06-01] MEDS: BACLOFEN 10MG TABLET PO SCH ×2 (06:00→14:19)
[2020-06-01] MEDS: ENOXAPARIN 40MG/0.4ML SYR SUBCUT SCH (10:14)
[2020-06-01] MEDS: DICLOFENAC SODIUM 75MG DR (EC) TABLET PO SCH (10:14)
[2020-06-01] MEDS: HYDROXYCHLOROQUINE SULFATE 200MG TABLET PO SCH (10:14)
[2020-06-01] MEDS: DULOXETINE HCL 60MG DR CAPSULE PO SCH (10:15)
[2020-06-01] MEDS: FOLIC ACID 1MG TABLET PO SCH ×2 (10:15→10:20)
[2020-06-01] MEDS: METHOTREXATE SODIUM 2 . 5MG TABLET PO SCH (10:15)
[2020-06-01] MEDS: PREDNISONE 20MG TABLET PO SCH (10:15)
[2020-06-01] MEDS: LIDOCAINE 5% PATCH TOP SCH (10:16)
[2020-06-01] MEDS: GABAPENTIN 400MG CAPSULE PO SCH (10:20)
[2020-06-01] MEDS ORDERED: HYDROCODONE/ACETAMINOPHEN 10/325MG TABLET PO PRN (13:15)
[2020-06-01] MEDS ORDERED: GABAPENTIN 300MG CAPSULE PO SCH (14:00)
[2020-06-01 17:33] VITALS: BP 113/78
== END 2020-06-01 18:55 | disposition home health service (06) | DRG 144 ==
LOC: ER 11:12 → EDBEDREQ 11:37 → 6WST 13:42 → EDBEDREQTM 13:49 → EDBEDREQ 13:49 → ENRESERV 15:45
PROVIDERS: ADMIT Internal Medicine; ATTEND Internal Medicine
DX: S22.31XA Fracture of one rib, right side, initial encounter for closed fracture (principal); W01.0XXA Fall on same level from slipping, tripping and stumbling without subsequent striking against object, initial encounter; S30.0XXA Contusion of lower back and pelvis, initial encounter; M48.00 Spinal stenosis, site unspecified; M47.814 Spondylosis without myelopathy or radiculopathy, thoracic region; M32.9 Systemic lupus erythematosus, unspecified; J45.909 Unspecified asthma, uncomplicated; G89.4 Chronic pain syndrome; G62.9 Polyneuropathy, unspecified; F12.90 Cannabis use, unspecified, uncomplicated; J98.11 Atelectasis; S80.00XA Contusion of unspecified knee, initial encounter; M17.11 Unilateral primary osteoarthritis, right knee; Z88.8 Allergy status to other drugs, medicaments and biological substances; Z79.891 Long term (current) use of opiate analgesic; Z90.49 Acquired absence of other specified parts of digestive tract; Z86.73 Personal history of transient ischemic attack (TIA), and cerebral infarction without residual deficits; Z79.899 Other long term (current) drug therapy; Z90.89 Acquired absence of other organs; Y93.89 Activity, other specified; Y92.89 Other specified places as the place of occurrence of the external cause; Y99.8 Other external cause status
CPT/HCPCS: 36415; 71045; 71260; 72146; 72148; 72192; 73120; 73552; 73560; 73700; 80048; 80053; 80305; 80320; 81003; 82140; 82550; 82553; 83605; 83880; 84484; 85025; 86850; 86900; 92523; 93005; 93306; 93970; 97110; 97116; 97162; 97166; 97535; 99285; J1170; J1650; J2270; J2405; J3010; J7030; J7512; J8610; Q0163; Q9967; G0480

== ENCOUNTER 2020-06-19 09:20 | Emergency (ER) | payer MEDICAID, OTHER ==
[~2020-06-19] VITALS: Ht 162.6 cm; Wt 60.0 kg
[~2020-06-19 09:20] MED LIST changes: +CALC1TAB99 PO; +DICL75TA5 PO; +DULO60CA64 PO; +HYDR200T35 PO; +METH2.5T PO
[2020-06-19] MEDS ORDERED: KETOROLAC 60MG/2ML VIAL IM STA (10:20)
[2020-06-19] MEDS ORDERED: HYDROCODONE/ACETAMINOPHEN 5/325MG TABLET PO STA (10:45)
[2020-06-19 10:53] VITALS: BP 130/81
[2020-06-19] MEDS ORDERED: BACITRACIN ZINC OINT UDPKT TOP ONE (11:45)
[2020-06-19] MEDS ORDERED: LIDOCAINE HCL/PF 1% 10 MG/ML 5ML VIAL IJ ONE (11:45)
== END 2020-06-19 13:11 | disposition home or self-care (01) ==
LOC: ER 09:24
DX: S61.451A Open bite of right hand, initial encounter (principal); S20.211A Contusion of right front wall of thorax, initial encounter; W54.0XXA Bitten by dog, initial encounter; Y93.89 Activity, other specified; Y92.017 Garden or yard in single-family (private) house as the place of occurrence of the external cause; Z87.81 Personal history of (healed) traumatic fracture; W01.0XXA Fall on same level from slipping, tripping and stumbling without subsequent striking against object, initial encounter
CPT/HCPCS: 12002; 71101; 73130; 99284; J1885; J3490

== ENCOUNTER 2020-06-23 22:17 | Emergency (ER) | payer OTHER ==
[~2020-06-23] VITALS: Ht 162.6 cm; Wt 64.0 kg
[2020-06-23] MEDS ORDERED: VISCOUS LIDOCAINE 2% 15 ML UDC MM STA (23:01)
[2020-06-24] MEDS ORDERED: LORAZEPAM 2MG/ML CPJ IV ONE
[2020-06-24] MEDS ORDERED: MORPHINE SULFATE 4 MG/ML CPJ (NOT FOR IM USE) IV STA (00:33)
[2020-06-24] MEDS ORDERED: ONDANSETRON HCL 4MG/2ML INJ IV STA (00:33)
[2020-06-24] MEDS ORDERED: ONDANSETRON HCL 4MG/2ML INJ IV ONE (02:00)
[2020-06-24] MEDS ORDERED: MORPHINE SULFATE 2 MG/ML CPJ (NOT FOR IM USE) IV ONE (02:00)
[2020-06-24 02:55] VITALS: BP 120/80
== END 2020-06-24 03:05 | disposition short-term general hospital (02) ==
LOC: ER 22:17
DX: R13.19 Other dysphagia (principal); M32.9 Systemic lupus erythematosus, unspecified; J45.909 Unspecified asthma, uncomplicated; Z86.73 Personal history of transient ischemic attack (TIA), and cerebral infarction without residual deficits
CPT/HCPCS: 70360; 96374; 96375; 96376; 99285; J2060; J2270; J2405

== ENCOUNTER 2020-07-28 10:01 | Emergency (ER) | payer OTHER ==
[~2020-07-28] VITALS: Ht 172.7 cm; Wt 55.0 kg
[2020-07-28 10:02] VITALS: BP 142/83
== END 2020-07-28 10:35 | disposition home or self-care (01) ==
LOC: ER 10:01
DX: Z02.79 Encounter for issue of other medical certificate (principal)
CPT/HCPCS: 99281

== ENCOUNTER 2021-01-27 11:13 | Emergency (ER) | payer MEDICAID, OTHER ==
[~2021-01-27] VITALS: Ht 160 cm; Wt 59.0 kg
[2021-01-27] MEDS ORDERED: MAGNESIUM 2 G PREMIX 50 ML IV STA (11:31)
[2021-01-27] MEDS ORDERED: METHYLPREDNISOLONE SOD SUCC 125 MG/2 ML VIAL IV STA (11:31)
[2021-01-27] MEDS ORDERED: ALBUTEROL (0.083%) 2.5MG/3ML NEB HHN STA (11:31)
[2021-01-27] MEDS ORDERED: MORPHINE SULFATE 4 MG/ML CPJ (NOT FOR IM USE) IV STA (11:31)
[2021-01-27] MEDS ORDERED: IPRATROPIUM BROMIDE (0.02%) 0.5MG/2.5ML NEB HHN STA (11:31)
[2021-01-27] MEDS ORDERED: ONDANSETRON HCL 4MG/2ML INJ IV STA (11:31)
[2021-01-27] MEDS ORDERED: ASPIRIN 81MG TABLET PO ONE (11:45)
[2021-01-27] MEDS ORDERED: SODIUM CHLORIDE 0.9% 1,000 ML IV ONE (11:45)
[2021-01-27 11:59] LABS: BASOPHILS % 0.6 % (0.0-2.0); EOSINOPHILS % 1.7 % (0.0-5.0); HEMATOCRIT. 33.8 % (36.0-48.0); HEMOGLOBIN. 11.5 g/dL (12.0-16.0); LYMPHOCYTES % 43.5 % (20.0-50.0); MEAN CORPUSCULAR HEMOGLOBIN 34.1 pg (28.0-32.0); MEAN CORPUSCULAR VOLUME 100.4 fL (81.0-99.0); MONOCYTES % 7.9 % (2.0-8.0); NEUTROPHILS % 46.3 % (40.0-76.0); PLATELET 284 x1000/uL (130-400); RED BLOOD CELL COUNT 3.37 mill/uL (4.2-5.4); RED CELL DISTRIBUTION WIDTH 13.5 % (11.6-14.6)
[2021-01-27 12:09] LABS: CHLORIDE 109 mEq/L (98-107)
[2021-01-27] MEDS ORDERED: AZITHROMYCIN 500 MG in DEXT 5% WATER 250 ML IV STA (12:16)
[2021-01-27] MEDS ORDERED: CEFTRIAXONE 1 G PREMIX 50 ML IV ONE (12:30)
[2021-01-27] MEDS ORDERED: LORAZEPAM 2MG/ML CPJ IV PRN (14:15)
[2021-01-27] MEDS ORDERED: ALBUTEROL 6.7GM HFA INHALER ORI PRN (14:15)
[2021-01-27] MEDS ORDERED: ACETAMINOPHEN 325MG TABLET PO PRN (14:15)
[2021-01-27] MEDS ORDERED: GUAIFENESIN 200MG/10ML SUGAR FREE UDC PO PRN (14:15)
[2021-01-27] MEDS ORDERED: CLONIDINE 0.1MG TABLET PO PRN (14:15)
[2021-01-27] MEDS ORDERED: HYDROCODONE/ACETAMINOPHEN 5/325MG TABLET PO PRN (14:15)
[2021-01-27] MEDS ORDERED: POTASSIUM CHLORIDE 20MEQ TABLET SR PO NR (14:15)
[2021-01-27] MEDS ORDERED: MORPHINE SULFATE 2 MG/ML CPJ (NOT FOR IM USE) IV PRN (14:15)
[2021-01-27] MEDS ORDERED: DIPHENHYDRAMINE 50MG/ML VIAL IV PRN (14:15)
[2021-01-27] MEDS ORDERED: DOCUSATE SODIUM 100MG CAPSULE PO PRN (14:15)
[2021-01-27] MEDS ORDERED: ONDANSETRON HCL 4MG/2ML INJ IV PRN (14:15)
[2021-01-27] MEDS ORDERED: MAGNESIUM/ALUMINUM HYDROXIDE/SIMETHICONE 30ML UDC PO PRN (14:15)
[2021-01-27 14:34] LABS: CLARITY URINE CLEAR (CLEAR); COLOR URINE YELLOW (YELLOW); KETONES URINE NEGATIVE (NEGATIVE); LEUKOCYTE ESTERASE URINE NEGATIVE (NEGATIVE); NITRITE URINE NEGATIVE (NEGATIVE); OCCULT BLOOD URINE NEGATIVE (NEGATIVE); PH URINE 5.5 (4.5-8.0); PROTEIN URINE NEGATIVE (NEGATIVE); SPECIFIC GRAVITY URINE 1.009 (1.005-1.030); UROBILINOGEN URINE 0.2 E.U./dL (0.2-1.0)
[2021-01-27 15:00] LABS: *AMPHETAMINES SCREEN URINE NEGATIVE (NEGATIVE); *BARBITURATES SCREEN URINE NEGATIVE (NEGATIVE); *BENZODIAZEPINES SCREEN URINE NEGATIVE (NEGATIVE); *COCAINE SCREEN URINE NEGATIVE (NEGATIVE); METHADONE URINE SCREEN NEGATIVE (NEGATIVE); OPIATES URINE SCREEN PRESUMTIVE POSITIVE (NEGATIVE)
[2021-01-27] MEDS ORDERED: ENOXAPARIN 40MG/0.4ML SYR SUBCUT SCH (15:00)
[2021-01-27 15:01] LABS: CANNABINOID URINE SCREEN PRESUMTIVE POSITIVE (NEGATIVE); PHENCYCLIDINE URINE SCREEN NEGATIVE (NEGATIVE)
[2021-01-27 16:00] VITALS: BP 110/68
[2021-01-27] MEDS ORDERED: IPRATROPIUM/ALBUTEROL 0.5-3(2.5)MG/3ML NEB HHN SCH (16:00)
[2021-01-27] MEDS ORDERED: METHYLPREDNISOLONE SOD SUCC 125 MG/2 ML VIAL IV SCH (22:00)
[2021-01-27] MEDS ORDERED: SODIUM CHLORIDE 0.9% INJ 3ML FLUSH IVF SCH (22:00)
[2021-01-28] MEDS ORDERED: CEFTRIAXONE 1 G PREMIX 50 ML IV SCH (12:00)
[2021-01-28] MEDS ORDERED: AZITHROMYCIN 500 MG in DEXT 5% WATER 250 ML IV SCH (13:00)
== END 2021-01-27 16:00 | disposition left against medical advice (07) ==
LOC: ER 11:27 → EDBEDREQ 13:22 → ER 16:00 → CANBEDREQ 16:23
DX: J18.9 Pneumonia, unspecified organism (principal); J96.00 Acute respiratory failure, unspecified whether with hypoxia or hypercapnia; R07.89 Other chest pain; J45.909 Unspecified asthma, uncomplicated; I10 Essential (primary) hypertension; M32.9 Systemic lupus erythematosus, unspecified; Z86.73 Personal history of transient ischemic attack (TIA), and cerebral infarction without residual deficits; Z88.5 Allergy status to narcotic agent
CPT/HCPCS: 36415; 71045; 80053; 80305; 81003; 83690; 83880; 84484; 85025; 93005; 94644; 96365; 96368; 96375; 96376; 99285; J0456; J0696; J2270; J2405; J2930; J3475; J7030; J7060; Z7610

== ENCOUNTER 2021-03-28 08:56 | Emergency (ER) | payer MEDICAID ==
[~2021-03-28] VITALS: Ht 149.9 cm; Wt 52.0 kg
[2021-03-28] MEDS ORDERED: CEFTRIAXONE SODIUM 1 G/VIAL IM ONE (09:45)
[2021-03-28] MEDS ORDERED: ONDANSETRON 4MG ODT PO ONE (09:45)
[2021-03-28] MEDS ORDERED: LIDOCAINE HCL 1% 20ML VIAL (Pyxis) INJ INFIL ONE (09:45)
[2021-03-28] MEDS ORDERED: TETANUS, DIPHTHERIA, PERTUSSIS VAC/PF 0.5ML (>7YR OLD) IM ONE (09:45)
[2021-03-28] MEDS ORDERED: IBUPROFEN 600MG TABLET PO ONE (09:45)
[2021-03-28] MEDS ORDERED: ACETAMINOPHEN 325MG TABLET PO ONE (10:00)
[2021-03-28] MEDS ORDERED: BACITRACIN ZINC OINT UDPKT TOP ONE (10:45)
[2021-03-28] MEDS ORDERED: AMOX-424 MT (10:50)
[2021-03-28] MEDS ORDERED: TOPUD MT (10:50)
[2021-03-28 11:05] VITALS: BP 118/89
== END 2021-03-28 11:06 | disposition home or self-care (01) ==
LOC: ER 08:56
DX: S61.230A Puncture wound without foreign body of right index finger without damage to nail, initial encounter (principal); W54.0XXA Bitten by dog, initial encounter; Y93.89 Activity, other specified; Y92.038 Other place in apartment as the place of occurrence of the external cause; Z23 Encounter for immunization; J45.909 Unspecified asthma, uncomplicated; Z79.899 Other long term (current) drug therapy; Z86.73 Personal history of transient ischemic attack (TIA), and cerebral infarction without residual deficits
CPT/HCPCS: 73130; 90471; 90715; 96372; 99284; J0696; J3490; Q0162

== ENCOUNTER 2025-09-25 09:46 | Emergency (ER) | payer MEDICAID ==
[~2025-09-25] VITALS: Ht 149.9 cm; Wt 62.0 kg
[~2025-09-25 09:46] MED LIST changes: +AMOX-424 MT; +CARI-517 PO; -CARI350T27 PO; -GABA-533 MT; +GABA-534 MT; +TOPUD MT
[2025-09-25 09:48] VITALS: O2SAT 100
[2025-09-25 09:53] VITALS: BP 115/63; PULSE 98; RESP 16; TEMP 36.7; O2SAT 98
== END 2025-09-25 10:46 | disposition left against medical advice (07) ==
LOC: ER 09:46
DX: S61.051A Open bite of right thumb without damage to nail, initial encounter (principal); E11.9 Type 2 diabetes mellitus without complications; J45.909 Unspecified asthma, uncomplicated; Z79.52 Long term (current) use of systemic steroids; Z88.5 Allergy status to narcotic agent; Z79.899 Other long term (current) drug therapy; W54.0XXA Bitten by dog, initial encounter; Y93.89 Activity, other specified; Y92.89 Other specified places as the place of occurrence of the external cause; Y99.8 Other external cause status
CPT/HCPCS: 99282